=== PATIENT | male | born 1995 | race Caucasian/White ===

== ENCOUNTER 2021-02-27 22:53 | Emergency (ER) | payer SELFPAY ==
[~2021-02-27] VITALS: Ht 175.3 cm; Wt 88.0 kg
[2021-02-27] MEDS ORDERED: IV NORMAL SALINE 1000ML BAG 1,000 ML IV ONE (23:00)
--- NOTE | 2021-02-27 23:36 | PHYS DOC ---
Past Medical History Past Surgical History: No Surgical History (ROGER PAGE APRN) Smoking Status: Current Every Day Smoker Alcohol Use: Occasionally (ROGER PAGE APRN) General Adult EDM: Chief Complaint: SHOULDER INJURY HPI: HPI: Patient is a 25 year old male who presents with drink half a gallon of vodka tonight and then fell somehow but he does not remember how but he landed on his right shoulder. There is deformity. Patient states he has been off the shoulder out of place for other times before. He states last time he saw an orthopedic was in [place] and he just moved to [place]. He states he does not have insurance in the [facility]. He states he is post his surgery on the shoulder but never did due to money. He states he cannot move at the shoulder. He does have range of motion of the elbow but everything in his elbow it hurts his shoulder. He denies any numbness or tingling. Rates his pain at a 3 out of 10 at this time. (ROGER PAGE APRN) Review of Systems: Review of Systems: Constitutional: Denies fever or chills. [] Eyes: Denies change in visual acuity. [] HENT: Denies nasal congestion or sore throat. [] Respiratory: Denies cough or shortness of breath. [] Cardiovascular: Denies chest pain or + right shoulder edema. [] GI: Denies abdominal pain, nausea, vomiting, bloody stools or diarrhea. [] : Denies dysuria. [] Musculoskeletal: Denies back pain or + right shoulder joint pain. [] Integument: Denies rash. [] Neurologic: Denies headache, focal weakness or sensory changes. [] Endocrine: Denies polyuria or polydipsia. [] Lymphatic: Denies swollen glands. [] Psychiatric: Denies depression or anxiety. [] (ROGER PAGE APRN) Heart Score: C/O Chest Pain: No (ROGER PAGE APRN) C/O Chest Pain: No (ANA CARRERO MD) Current Medications: Current Medications Medications (Trade) Dose Ordered Sig/Delilah Start Time Stop Time Status Last Admin Dose Admin Sodium Chloride 1,000 ml @ 1,000 mls/hr 1X ONCE 02/27/21 23:00 02/27/21 23:59 UNV (ROGER PAGE APRN) Physical Exam: PE: Constitutional: Well developed, well nourished, no acute distress, non-toxic appearance. [] HENT: Normocephalic, atraumatic, bilateral external ears normal, oropharynx moist, no oral exudates, nose normal. [] Eyes: PERRLA, EOMI, conjunctiva normal, no discharge. [] Neck: Normal range of motion, no tenderness, supple, no stridor. [] Cardiovascular:Heart rate regular rhythm, no murmur [] Lungs & Thorax: Bilateral breath sounds clear to auscultation [] Abdomen: Bowel sounds normal, soft, no tenderness, no masses, no pulsatile masses. [] Skin: Warm, dry, no erythema, no rash. [] Back: No tenderness, no CVA tenderness. [] Extremities: Right lateral, posterior and anterior shoulder tenderness, no cyanosis, no clubbing, ROM not intact, 2+edema. [] Neurologic: Alert and oriented X 3, normal motor function, normal sensory function, no focal deficits noted. [] Psychologic: Affect normal, judgement normal, mood normal. [] (ROGER PAGE APRN) Current Patient Data: Vital Signs: Vital Signs Date Time Temp Pulse Resp B/P (MAP) Pulse Ox O2 Delivery O2 Flow Rate FiO2 02/27/21 22:55 98.0 62 19 123/58 (79) 100 Room Air 98.0 (ROGER PAGE APRN) EKG: EKG: [] (ROGER PAGE APRN) Radiology/Procedures: Radiology/Procedures: [] Impression: [facility] [address] [place], [place] [id number] IMAGING REPORT Signed PATIENT: ABDOUL LOREDO ACCOUNT: [id number] : 1995 LOCATION: ER AGE: 25 SEX: M EXAM STATUS: PRE ER ORD. PHYSICIAN: ROGER PAGE APRN REASON: fall, deformity PROCEDURE: SHOULDER 2+V RIGHT EXAM: RIGHT SHOULDER 3 VIEWS. HISTORY: Fall, deformity. COMPARISON: None. FINDINGS: There is anterior dislocation of the right humeral head. No fractures are identified. Acromioclavicular joint spaces and alignment are maintained. IMPRESSION: 1. Anterior dislocation of the right humeral head. Electronically signed by: Sixto Aguilar MD (02/28/2021 12:11 AM) [facility] DICTATED and SIGNED BY: CUONG AGUILAR MD DATE: 02/28/21 [id number] (ROGER PAGE APRN) Radiology/Procedures: Pain control sedation with fentanyl and midazolam with attempting of tach traction countertraction, Shanks technique, Sj technique, and scapular manipulation unsuccessful. Patient given time to rest on his alcohol metabolize off in case we need to do procedural sedation. Patient given 150 mg of fentanyl and instructed on the tablets technique yielding in a successful reduction of right shoulder. Confirmed with x-rays pending radiologist read. Patient observed in emergency department after fentanyl doses. (ANA CARRERO MD) Course & Med Decision Making: Course & Med Decision Making Pertinent Labs and Imaging studies reviewed. (See chart for details) See HPI. Alert and oriented. Speaks in full clear sentences. He is intoxicated. He is cooperative at this time. Radial pulse strong are present. Going all of his fingers. Strong telemarketing fundraiser. No joint laxity. Cannot move at the shoulder due to pain. The right shoulder tender to posterior, lateral and anterior. No bruising or abrasions are seen. There is no redness. 2-3+ swelling. Does appear dislocated. Cap refill less than 2 seconds. Full range of motion of elbow and wrist. Denies hitting his head or LOC. Denies any neck or back pain. Shoulder is dislocated. Myself and Dr. Carrero have tried to put the shoulder back in place with 100MCG of fentanyl. Unable to get it relocated. We then gave 5 mg of Versed and tried again with nursing staff. Again shoulder did not go back into place. 0110: Patient is reported off to Dr. Carrero. [] (ROGER PAGE APRN) Dragon Disclaimer: Dragon Disclaimer: This electronic medical record was generated, in whole or in part, using a voice recognition dictation system. (ROGER PAGE APRN) Departure Departure Impression: Primary Impression: Shoulder dislocation Qualified Codes: S43.004A - Unspecified dislocation of right shoulder joint, initial encounter Disposition: HOME / SELF CARE / HOMELESS Condition: STABLE Referrals: ILYA BARBA DO Patient Instructions: Shoulder Dislocation Additional Instructions: Follow-up with orthopedic doctor by calling for your appointment in the morning. Take medication as prescribed and with food or take this medication will make you sleepy so do not drink alcohol as it can also lower your respiratory rate and you can stop breathing and can occur. Do not drive while taking pain medications. Call make appointment with orthopedic surgeon Ilya Barba DO [facility] , [address] [address] Scripts Acetaminophen With Codeine (ACETAMINOPHEN-COD #3 TABLET) 1 Each Tablet 1 TAB PO PRN Q6HRS PRN for PAIN for 3 Days, #12 TAB Prov: ANA CARRERO MD 02/28/21 ROGER PAGE APRN Feb 27, 2021 23:36 ANA CARRERO MD Feb 28, 2021 04:24
[2021-02-27 23:46] LABS: BASO # 0.1 x10^3/uL (0.0-0.2); BASO % 1 % (0-3); EOS # 0.3 x10^3/uL (0.0-0.7); EOS % 5 % (0-3); HEMATOCRIT 42.8 % (39.0-53.0); LYMPH # 2.3 x10^3/uL (1.0-4.8); LYMPH % 35 % (24-48); MEAN CORPUSCULAR HEMOGLOBIN 33 pg (25-35); MEAN CORPUSCULAR HGB CONC 35 g/dL (31-37); MEAN CORPUSCULAR VOLUME 95 fL (79-100); MONO # 0.3 x10^3/uL (0.0-1.1); MONO % 5 % (0-9); NEUT # 3.6 x10^3/uL (1.8-7.7); NEUT % 54 % (31-73); PLATELET COUNT 420 x10^3/uL (140-400); WHITE BLOOD COUNT 6.7 x10^3/uL (4.0-11.0)
[2021-02-27 23:54] LABS: CALCIUM 8.6 mg/dL (8.5-10.1); GFR 92.6; POTASSIUM 3.7 mmol/L (3.5-5.1)
[2021-02-28] LABS: ALBUMIN 3.9 g/dL (3.4-5.0); TOTAL BILIRUBIN 0.2 mg/dL (0.2-1.0); TOTAL PROTEIN 7.8 g/dL (6.4-8.2)
--- NOTE | 2021-02-28 00:14 | RAD ---
EXAM: RIGHT SHOULDER 3 VIEWS. HISTORY: Fall, deformity. COMPARISON: None. FINDINGS: There is anterior dislocation of the right humeral head. No fractures are identified. Acrom ioclavicular joint spaces and alignment are maintained. IMPRESSION: 1. Anterior dislocation of the right humeral head. Electronically signed by: Sixto Aguilar MD (02/28/2021 12:11 AM) [facility]
[2021-02-28] MEDS ORDERED: fentaNYL PF VIAL 100 MCG/2 ML VIAL IVP ONE ×3 (00:15→03:45)
[2021-02-28] MEDS ORDERED: IV NORMAL SALINE 1000ML BAG 1,000 ML IV ONE (00:30)
[2021-02-28] MEDS ORDERED: MIDAZOLAM HCL/PF 5 MG/5 ML VIAL. IV ONE (01:00)
[2021-02-28] MEDS ORDERED: ACET1TAB33 PO ×2 (04:19→04:23)
--- NOTE | 2021-02-28 05:41 | RAD ---
EXAM: RIGHT SHOULDER 2 VIEWS. HISTORY: Dislocation reduction. COMPARISON: None. FINDINGS: The humeral head is been reduced. No fractures are identified. Acromioclavicular joint spac es and alignment are maintained. IMPRESSION: 1. The humeral head is reduced. No fractures are identified. Electronically signed by: Sixto Aguilar MD (02/28/2021 5:39 AM) [facility]
[2021-02-28 06:30] VITALS: BP 140/91
== END 2021-02-28 06:45 | disposition home or self-care (01) ==
LOC: ER 22:53
DX: S43.014A Anterior dislocation of right humerus, initial encounter (principal); F17.200 Nicotine dependence, unspecified, uncomplicated; W18.39XA Other fall on same level, initial encounter; Y93.89 Activity, other specified; Y92.89 Other specified places as the place of occurrence of the external cause; Y99.8 Other external cause status
CPT/HCPCS: 23650; 36415; 73030; 80053; 85025; 96361; 96374; 96376; 99285; A4565; G0480; J2250; J3010; J7030

== ENCOUNTER 2021-03-02 01:02 | Emergency (ER) | payer SELFPAY ==
[~2021-03-02] VITALS: Ht 175.3 cm; Wt 81.8 kg
[~2021-03-02 01:02] MED LIST: ACET1TAB33 PO
[2021-03-02] MEDS ORDERED: PROPOFOL 10 MG/ML (20ML) VIAL. IV ONE ×2 (01:15→02:15)
--- NOTE | 2021-03-02 01:15 | PHYS DOC ---
Past Medical History Past Surgical History: No Surgical History Smoking Status: Current Every Day Smoker Alcohol Use: Occasionally General Adult HPI: HPI: Patient is a 25 year old male with a past medical history of shoulder dislocations presents with the chief complaint of right shoulder dislocation. Patient states current dislocation is #7. Patient was seen on Feb 27 and had right shoulder reduced. Patient was placed in shoulder immobilizer. Patient took immobilizer off tonight and right shoulder dislocated. Review of Systems: Review of Systems: Constitutional: Denies fever or chills. [] Eyes: Denies change in visual acuity. [] HENT: Denies nasal congestion or sore throat. [] Respiratory: Denies cough or shortness of breath. [] Cardiovascular: Denies chest pain or edema. [] GI: Denies abdominal pain, nausea, vomiting, bloody stools or diarrhea. [] : Denies dysuria. [] Musculoskeletal: Denies back pain positive shoulder pain Integument: Denies rash. [] Neurologic: Denies headache, focal weakness or sensory changes. [] Endocrine: Denies polyuria or polydipsia. [] Lymphatic: Denies swollen glands. [] Psychiatric: Denies depression or anxiety. [] Heart Score: C/O Chest Pain: N/A Risk Factors: Risk Factors: DM, Current or recent (<one month) smoker, HTN, HLP, family history of CAD, obesity. Risk Scores: Score 0 - 3: 2.5% MACE over next 6 weeks - Discharge Home Score 4 - 6: 20.3% MACE over next 6 weeks - Admit for Clinical Observation Score 7 - 10: 72.7% MACE over next 6 weeks - Early Invasive Strategies Allergies: Allergies: Allergies Coded Allergies Type Severity Reaction Last Updated Verified No Known Drug Allergies 02/27/21 No Physical Exam: PE: General: alert, no acute distress. Skin: warm, dry and intact, no erythema, no rash. HENT: bilateral external ears normal, oropharynx moist, nose normal. Head:: Normocephalic, atraumatic. Neck: Trachea midline. Eyes: EOMI, Normal conjunctiva, No drainage CARDIOVASCULAR: Regular rate and rhythm RESPIRATORY: No respiratory distress Back: Full range of motion. MUSCULOSKELETAL: Full range of motion of left upper upper and bilateral lower extremities. Right upper extremity decreased range of motion due to pain. Right arm held in AB duction. Physical physical exam right shoulder consistent with anterior dislocation GASTROINTESTINAL: Abdomen soft without rebound or guarding. NEUROLOGICAL: Alert and noted to person, place and time. No neurological deficits observed right upper extremity neurovascularly intact. Psychiatric: Cooperative. Normal judgment EKG: EKG: [] Radiology/Procedures: Radiology/Procedures: [] Impression: Shoulder Xray wet read anterior dislocation right shoulder Post Reduction Shoulder Xray wet read Reduction of right shoulder Course & Med Decision Making: Course & Med Decision Making Pertinent Labs and Imaging studies reviewed. (See chart for details) []Patient underwent conscious sedation with closed reduction. Respiratory therapy was at bedside. Patient received a total of 100 mg of propofol. Patient was initially dosed with 100 mg, followed by 50 mg x 2 Once successful anesthesia was achieved patient right shoulder was reduced using the [place] technique. Shoulder immobilizer was placed. Patient was observed until presedation mental status. Postreduction x-ray wet read successful reduction. Patient's right upper extremity neurovascularly intact. Patient was observed to presedation mental status. He was discharged home. Patient referred to orthopedics. 0300hrs. Patient a/ox4. Patient feed--- ate and drank without issue. Patient stable for discharge. Dragon Disclaimer: Dragon Disclaimer: This electronic medical record was generated, in whole or in part, using a voice recognition dictation system. Departure Departure Impression: Primary Impression: Shoulder dislocation Additional Impression: H/O reduction of closed dislocation Disposition: HOME / SELF CARE / HOMELESS Condition: STABLE Referrals: NO PCP (PCP) ARVIND SOMMERS MD Patient Instructions: Sedation, Moderate, Adult, Shoulder Dislocation, Shoulder Immobilizer GREG HURT DO Mar 02, 2021 01:15
[2021-03-02 01:56] VITALS: BP 115/73
--- NOTE | 2021-03-02 04:30 | RAD ---
EXAM: 1. RIGHT SHOULDER 2 VIEWS, 03/02/2021, 0128. 2. RIGHT SHOULDER 2 VIEWS, 03/02/2021, 0200. HISTORY: Dislocation/reduction. COMPARISON: 02/28/2021. FINDINGS: There is anterior dislocation of the right humeral head on the initial study. It is reduced on the second examination. A moderate Hill-Sachs deformity is noted. An osseous Bankart lesion is al so suspected, though both may be chronic. Acromioclavicular joint spaces and alignment are maintained. IMPRESSION: 1. Anterior dislocation of the right humeral head status post reduction on the second study. 2. Moderate Hill-Sachs deformity. An osseous Bankart lesion is also suspected. Electronically signed by: Sixto Aguilar MD (03/02/2021 4:27 AM) [facility]
[2021-03-02 05:00] VITALS: BP 138/87
== END 2021-03-02 05:00 | disposition home or self-care (01) ==
LOC: ER 01:20
DX: S43.004A Unspecified dislocation of right shoulder joint, initial encounter (principal); F17.200 Nicotine dependence, unspecified, uncomplicated; X58.XXXA Exposure to other specified factors, initial encounter; Y93.89 Activity, other specified; Y92.89 Other specified places as the place of occurrence of the external cause; Y99.8 Other external cause status
CPT/HCPCS: 23650; 73030; 99285; J2704

== ENCOUNTER 2021-05-07 06:58 | Emergency (ER) | payer MEDICAID ==
[~2021-05-07] VITALS: Ht 175.3 cm; Wt 83.8 kg
[2021-05-07] MEDS ORDERED: fentaNYL PF VIAL 100 MCG/2 ML VIAL IV ONE ×2 (07:30→08:15)
[2021-05-07] MEDS ORDERED: IV NORMAL SALINE 1000ML BAG 1,000 ML IV ONE (07:30)
--- NOTE | 2021-05-07 07:45 | RAD ---
EXAM: Right shoulder, 2 views. HISTORY: Pain. Deformity. COMPARISON: None. FINDINGS: 2 views of the right shoulder obtained. There is an anterior shoulder dislocation. There is suggestion of a bone fragment inferior to the glenoid which may be artifact due to overlying osseous structures. IMPRESSION: Right shoulder dislocation. Follow-up following closed reduction is recommended to assess for possible concomitant fracture. Electronically signed by: Libia Mckeon MD (05/07/2021 7:43 AM) [id number]
--- NOTE | 2021-05-07 08:01 | PHYS DOC ---
Past Medical History Additional Past Medical Histor: MULTIPLE DISLOCATIONS Past Surgical History: No Surgical History Smoking Status: Current Every Day Smoker Additional Information: VAPES Alcohol Use: Occasionally Additional Information: DRINKS BEER AFTER WORK Social History Narrative: DAILY MARIJUANA USE General Adult EDM: Chief Complaint: SHOULDER INJURY HPI: HPI: 25 year old male presents with right shoulder pain. The pain started this morning while he was stretching his right shoulder with a flexion/abduction/ external rotation motion. He describes his pain as a sharp 6/10 that is much worse with any movement of the shoulder. The pain does not radiate and he does not report any sensory or motor changes distal to his shoulder. He is currently unable to move his right shoulder due to pain. He reports that he dislocates his shoulder multiple times a year with his most recent dislocation occurring within the past month. He has been referred to orthopedics for his recurrent dislocations, who have said that he will likely require surgery and PT to prevent future incidents. Review of Systems: Review of Systems: Constitutional: Denies fever or chills Eyes: Denies redness or eye pain HENT: Denies nasal congestion or sore throat Respiratory: Denies cough or shortness of breath Cardiovascular: Denies chest pain or palpitations GI: Denies abdominal pain, nausea, or vomiting : Denies dysuria or hematuria Musculoskeletal: Denies back pain. Reports right shoulder pain Integument: Denies rash or skin lesions Neurologic: Denies headache, focal weakness or sensory changes Complete systems were reviewed and found to be within normal limits, except as documented in this note. Heart Score: C/O Chest Pain: N/A Current Medications: Current Medications Medications (Trade) Dose Ordered Sig/[facility] Start Time Stop Time Status Last Admin Dose Admin Fentanyl Citrate (Fentanyl 2ml Vial) 50 mcg 1X ONCE 05/07/21 07:30 05/07/21 07:33 DC Sodium Chloride 1,000 ml @ 1,000 mls/hr 1X ONCE 05/07/21 07:30 05/07/21 08:29 Allergies: Allergies: Allergies Coded Allergies Type Severity Reaction Last Updated Verified No Known Drug Allergies 02/27/21 No Physical Exam: PE: Constitutional: Well developed, well nourished, acute distress due to shoulder pain, non-toxic appearance HENT: Normocephalic, atraumatic. Mallampatti Score: III Eyes: Conjunctiva normal, no discharge Neck: Normal range of motion, no tenderness, supple Lungs & Thorax: No respiratory distress, equal chest rise and fall Cardiovascular: Regular rate and rhythm with no murmur appreciated. 2/4 radial pulses bilaterally. Abdomen: Soft, no tenderness Skin: Warm, dry, no erythema, no rash Back: No tenderness Extremities: Visible deformity of the right shoulder with a prominent protrusion anteriorly and a sulcus under the right acromion. Limited ROM of the right shoulder in all motions with full ROM of right elbow and wrist. Full ROM of all motons of the left UE. 5/5 strength in elbows, wrists, and hands bilaterally. Unable to assess right shoulder strength due to pain, but 5/5 strength of left shoulder. Neurologic: Alert and oriented X 3, normal motor function, normal sensory function, no focal deficits noted. Sensation intact in bilateral UE's. Psychologic: Affect normal, judgment normal Current Patient Data: Vital Signs: Vital Signs Date Time Temp Pulse Resp B/P (MAP) Pulse Ox O2 Delivery O2 Flow Rate FiO2 05/07/21 07:02 98.0 71 18 126/89 (101) 99 Room Air 98.0 EKG: EKG: [] Radiology/Procedures: Radiology/Procedures: EXAM: Right shoulder, 2 views. HISTORY: Pain. Deformity. COMPARISON: None. FINDINGS: 2 views of the right shoulder obtained. There is an anterior shoulder dislocation. There is suggestion of a bone fragment inferior to the glenoid which may be artifact due to overlying osseous structures. IMPRESSION: Right shoulder dislocation. Follow-up following closed reduction is recommended to assess for possible concomitant fracture. Electronically signed by: Libia Mckeon MD (05/07/2021 7:43 AM) [id number][] Course & Med Decision Making: Course & Med Decision Making Pertinent Labs and Imaging studies reviewed. (See chart for details) 25 year old male presents with a right anterior shoulder dislocation after stretching this morning. His shoulder was assessed by physical examination and a 2-view shoulder x-ray which confirmed an anterior right shoulder dislocation. Pain was addressed with fentanyl. He was prepared for anesthesia and shoulder reduction with fluids, a secured entrance monitor, pulse oximetry, end tidal CO2 and NPO status. He was sedated and right shoulder reduction was performed under sedation, after which he was placed in an immobilizer. His follow-up x-ray showed a successfully reduced right shoulder. On re-examination, he had significantly reduced pain and appeared comfortable. He was instructed to follow-up with orthopedics for more definitive management and prescribed a muscle relaxer and pain medication for analgesia. Patient stable for discharge with outpatient follow-up with PCP. Discussed findings and plan with patient, who acknowledges understanding and agreement. [] Dragon Disclaimer: Dragon Disclaimer: This electronic medical record was generated, in whole or in part, using a voice recognition dictation system. Departure Departure Impression: Primary Impression: Shoulder dislocation Qualified Codes: S43.004A - Unspecified dislocation of right shoulder joint, initial encounter Disposition: HOME / SELF CARE / HOMELESS Condition: STABLE Referrals: NO PCP (PCP) EDER WILL Jr. DO Patient Instructions: Sedation, Moderate, Adult, Shoulder Dislocation, [id number], Shoulder Immobilizer Additional Instructions: ICE area of discomfort 20 min on then leave off next 20 min for next few days. Repeat several times daily as need for next few days. Take over the counter Tylenol and/or Ibuprofen for pain or discomfort. Scripts Tramadol Hcl (TRAMADOL HCL) 50 Mg Tablet 50 MG PO Q6HRS PRN for PAIN, #10 TAB Prov: SHAHEEN RUIZ DO 05/07/21 Orphenadrine Citrate (ORPHENADRINE CITRATE) 100 Mg Tablet.er 100 MG PO BID PRN for MUSCLE PAIN, #14 TAB Prov: SHAHEEN RUIZ DO 05/07/21 MODERATE SEDATION ASSESSMENT* RISKS/ALTERNATIVES Risks/Alternatives Risks and alternatives of this type of sedation and procedure discussed with: H & P ON CHART H & P H & P on chart and reviewed for co-morbid conditions and appropriate labs. MEDS/ALLERGIES REVIEWED Meds/Allergies Reviewed Medications and Allergies including time and route of recently administered narcotics and sedatives. AIRWAY ASSESSMENT Airway Assessment Airway patency, oral function limitations, presence of caps, crowns, dentures, partials, and ability to extend neck assessed. SHAHEEN RUIZ DO May 07, 2021 08:01
[2021-05-07] MEDS ORDERED: ETOMIDATE 20 MG/10 ML VIAL. IV ONE (08:15)
[2021-05-07 08:53] VITALS: BP 133/77
[2021-05-07] MEDS ORDERED: PROPOFOL 10 MG/ML (20ML) VIAL. IV ONE ×2 (09:04→09:16)
--- NOTE | 2021-05-07 09:37 | RAD ---
XR RIGHT SHOULDER 1 VIEW 05/07/2021 9:26 AM INDICATION: Shoulder relocation size with sedation COMPARISON: None available. TECHNIQUE: Single view of the right shoulder are provided. FINDINGS/ IMPRESSION: There is no acute fracture or dislocation status post interval reduction. Joint spaces are maintained . Bone mineralization is within normal limits. Regional soft tissues are within normal limits. There is no soft tissue gas or osseous erosion. No radiopaque foreign body. Electronically signed by: Kaylah Anderson MD (05/07/2021 9:35 AM) [id number]
[2021-05-07] MEDS ORDERED: TRAM50TA PO (10:19)
[2021-05-07] MEDS ORDERED: ORPH100T PO (10:19)
[2021-05-07 11:31] VITALS: BP 121/57
== END 2021-05-07 12:06 | disposition home or self-care (01) ==
LOC: ER 06:58
DX: S43.004A Unspecified dislocation of right shoulder joint, initial encounter (principal); F17.200 Nicotine dependence, unspecified, uncomplicated; X58.XXXA Exposure to other specified factors, initial encounter; Y93.89 Activity, other specified; Y92.89 Other specified places as the place of occurrence of the external cause; Y99.8 Other external cause status
CPT/HCPCS: 23650; 73020; 73030; 96361; 96374; 99152; 99153; 99285; J3010; J3490; J7030